=== PATIENT | male | born 1975 | race Caucasian/White ===

== ENCOUNTER 2019-01-12 12:41 | Day surgery (SDC) | payer OTHER, SELFPAY ==
--- NOTE | 2019-01-12 | PATH_ITS ---
[facility] Accession Number: [id number] . 01 Material submitted: . PART A: esophagus - ESOPHAGEAL BIOPSY/EOE PART B: colon - BIOPSY INFLAMMATION BOWEL 80-90 CM . 02 Diagnosis: A. Esophagus, Biopsy: Squamous epithelium with no diagnostic abnormality. Intraepithelial eosinophils are not increased. Negative for dysplasia and malignancy. . B. Colon, 80-90 cm, Biopsies: Colonic mucosa with mild extravasated red blood cells in the lamina propria. Negative for active inflammation, granulomas, dysplasia and malignancy. MRV/01/14/2019 . 02 Comment: Part B: The colon biopsies show patchy mild extravasation of red blood cells without features of active or chronic colitis. There is no evidence of acute ischemia. The differential diagnosis includes trauma/prolapse, diverticular disease or procedure-related changes. . 02 Electronically signed: . Claudia Ruiz MD, Pathologist NPI- [id number] . 01 Gross description: . Part A: ESOPHAGEAL BIOPSY/EOE: Received in formalin are multiple fragment(s) of merino, soft tissue measuring 0.1 x 0.1 x 0.1 cm to 0.2 x 0.1 x 0.1 cm which is entirely submitted and submitted entirely in 1 cassette(s) Part B: BIOPSY INFLAMMATION BOWEL 80-90 CM: Received in formalin are 3 fragment(s) of merino, soft tissue measuring 0.1 x 0.1 x 0.1 cm to 0.7 x 0.2 x 0.1 cm which is entirely submitted and submitted entirely in 1 cassette(s) /DMC /DMC . 02 Pathologist provided ICD-10: R10.9 . 02 CPT . 269465, [id number] Performed at: [address] [place] [address] [address], [place], [place] [id number] MD Jaison Moreno MD Phone: [phone] Performed at: [address] [facility] [address] [place] [id number] MD Claudia Ruiz MD Phone: [phone]
[2019-01-12 13:28] VITALS: BP 124/80; PULSE 52; RESP 18; TEMP 36.3; O2SAT 99; BMI 26.8
[2019-01-12] MEDS: SODIUM CHLORIDE 0.9% 1,000 ML 70 ML IV (13:32)
--- NOTE | 2019-01-12 13:59 | PM.HP.1 ---
History of Present Illness Date Patient Seen: 01/12/19 Time Patient Seen: 13:54 Chief complaint: [id number] Narrative: Patient is a very pleasant 43-year-old male who presented for EGD and colonoscopy for chief complaint of dysphagia and blood in the stool. Since his last office visit with Dr. Schmidt on December 09, 2018 he states his symptoms have been about the same. He has had intermittent rectal bleeding. He states his swelling is about the same. He feels that things get stuck intermittently. He denies any changes in his medications, medical history, surgical history, or family history since that time. Patient History Social History household members: spouse Family & Social History Social History: household members spouse Meds Home Medications Medication Instructions Recorded Confirmed Type No Known Home Medications 01/12/19 01/12/19 History Allergies Allergy/AdvReac Type Severity Reaction Status Date / Time No Known Drug Allergies Allergy Verified 01/12/19 13:27 Review of Systems Review of Systems All systems reviewed & are unremarkable except as noted in HPI and below Exam Vital Signs (past 8 hours): - 01/12/19 13:28 Temperature 97.4 F L Pulse Rate 52 L Respiratory Rate 18 Blood Pressure 124/80 Pulse Oximetry 99 Oxygen Delivery Method Room Air Const General: cooperative, healthy appearing, comfortable, well developed and well groomed Nutritional Appearance: average body habitus Orientation: oriented x3 Resp Effort & Inspection: normal respiratory effort and able to speak in complete sentences Auscultation: clear to auscultation bilaterally Cardio Rate: regular rate Rhythm: regular rhythm Heart Sounds: S1 normal and S2 normal GI Palpation: soft and no hepatosplenomegaly Auscultation: normal bowel sounds Assessment & Plan Assessment & Plan narrative: 1. Esophageal dysphagia 2. Hematochezia Plan for EGD and colonoscopy today Regarding the procedure(s), the risks and potential complications, benefits, and alternatives (including not doing the procedure) were discussed with the patient. The risks include but are not limited to bleeding, splenic injury, infection, perforation which may require surgical intervention, missed lesions, and adverse reactions to sedative medicines. After a question and answer period, the patient agreed to proceed with the procedure(s) and gives informed consent.
[2019-01-12] MEDS: LIDOCAINE 4% SOLN 50 ML 20 ML TOP (14:13)
[2019-01-12] MEDS: MIDAZOLAM 5 MG/5 ML VIAL IV (14:38)
[2019-01-12] MEDS: fentaNYL 250 MCG/5 ML INJ IV (14:39)
[2019-01-12] MEDS: LACTATED RINGERS 1,000 ML 42 ML IV (14:40)
[2019-01-12 15:05] VITALS: BP 103/55; PULSE 64; RESP 16; TEMP 36.6; O2SAT 97
[2019-01-12 15:10] VITALS: BP 97/47; PULSE 61; RESP 14; O2SAT 95
--- NOTE | 2019-01-12 15:15 | P.OP.ENDO_ITS ---
Operative Date/Time/Diagnoses Date of procedure: 01/12/19 Time of procedure: 14:13 Procedure Notes Procedure in detail: Surgeon: Leann Garcia DO Procedure: Esophagogastroduodenoscopy with biopsy and colonoscopy with biopsy Preoperative diagnosis: 1. Esophageal dysphagia 2. Hematochezia Postoperative diagnosis: 1. Small hiatal hernia, 2. Normal-appearing esophagus, biopsies to rule out eosinophilic esophagitis, 3. Colonic inflammation from 80- 90 cm -biopsied. 4. Internal hemorrhoids grade 2 Medications: Conscious sedation using 9 mg IV of Midazolam [id number] mcg IV of Fentanyl (total for both procedures), 4% lidocaine gargle Preanesthesia Assessment An H and P was performed/updated and the Px?s ASA class is 1. The procedure was discussed in detail with the patient. The potential risks and complications including infection, bleeding, missed lesions, perforation, need for surgery in case of perforation, prolonged hospital stay, and were explained. A brief question and answer period was allotted and once all questions were answered, informed consent was obtained. The patient was brought back to the procedure room and placed on standard monitoring. The patient?s vital signs were monitored continuously throughout the entire procedure. Prior to starting, a timeout was performed to confirm the patient?s identity, allergies, medications, and procedure. Procedure in detail The patient was placed in left lateral decubitus position and a bite block was inserted. The tip of the upper endoscope was placed into the mouth and advanced without difficulty under direct visualization into the esophagus. Esophagus: Normal-appearing esophagus for dysphagia, biopsies were taken to rule out eosinophilic esophagitis. The Z-line appeared regular Stomach: Small hiatal hernia, otherwise normal-appearing stomach Duodenum: No gross lesions were seen in the examined portion of the duodenum including the duodenal bulb, 1st portion, and 2nd portion. After the upper endoscopy, preparations were made for the colonoscopy. Once adequate sedation was obtained a SELMA was performed. The digital rectal examination did not reveal any palpable lesions. The tip of the colonoscope was placed in the anal canal and advanced without difficulty all the way to the cecum which was identified by the appendiceal orifice and the ileocecal valve. From 80-90 cm patient was noted to have an area of inflammation and edema. This did cause luminal stenosis. The adult colonoscope was then exchanged for pediatric colonoscope to be able to traverse through this area of narrowing. We were able to successfully traverse with the narrower scope. Biopsies were obtained from 80-90 cm and this area of inflammation. Internal hemorrhoids were noted on retroflexion -grade 2, this is likely the source of patient's rectal bleeding. Exam was otherwise unremarkable to the cecum. The patient tolerated the procedure well and will be brought back to the recovery area to be discharged once criteria are met. The prep was judged to be good/excellent and adequate to identify polyps less than 5 mm. The withdrawal time was 9min. The total physician intraservice time was 43min. Complications There were no complications and estimated blood loss was minimal. Recommendations Resume previous diet Continue outpatient medications Follow-up pathology results Repeat colonoscopy based on pathology results Follow-up at our office to be scheduled -will consider CT scan of the abdomen and pelvis at that time after biopsy results are reviewed An emergency contact number was given to the patient for any complications related to the procedure
[2019-01-12 15:24] VITALS: BP 105/65; PULSE 59; RESP 16; TEMP 36.4; O2SAT 98
[2019-01-12 15:36] VITALS: BP 108/66; PULSE 62; RESP 16; TEMP 36.4; O2SAT 99
== END 2019-01-12 15:40 | disposition home or self-care (01) ==
PROVIDERS: Visit Provider Student in an Organized Health Care Education/Training Program
PROC: 0DJ08ZZ Inspection of Upper Intestinal Tract, Via Natural or Artificial Opening Endoscopic (ICD-10-PCS; CPT 43235; principal; 2019-01-12 14:00)
PROC: 0DJD8ZZ Inspection of Lower Intestinal Tract, Via Natural or Artificial Opening Endoscopic (ICD-10-PCS; CPT 45378; 2019-01-12 14:00)
DX: K92.1 Melena (principal); R13.12 Dysphagia, oropharyngeal phase; K64.1 Second degree hemorrhoids; K44.9 Diaphragmatic hernia without obstruction or gangrene
CPT/HCPCS: 45380; 43239; 88305; J2250; J3010